=== PATIENT | male | born 1955 | race Caucasian/White ===

== ENCOUNTER 2020-07-08 00:57 | Observation (INO) | payer MEDICARE, SELFPAY ==
[2020-07-08] VITALS (26 sets, daily range): BP systolic 100–152; BP diastolic 56–92; PULSE 20–93; RESP 11–62; TEMP 35.6–36.6; O2SAT 91–100; BMI 35.9
--- NOTE | ~2020-07-08 | XR_ITS ---
EXAMINATION: XR chest 2V 07/08/2020 01:39 INDICATION: Chest pain PROCEDURE: 2 view chest COMPARISON: No prior studies for comparison. FINDINGS: The lungs are clear. The cardiomediastinal silhouette is within normal limits. There are no pleural effusions. There is no pneumothorax suspected. IMPRESSION: 1: NO ACUTE CARDIOPULMONARY DISEASE. Reviewed, dictated and finalized at location A.
--- NOTE | 2020-07-08 01:01 | ED.CHESTPAIN ---
HPI - Chest Pain General Chief Complaint: Chest Pain Stated Complaint: cp Time Seen by Provider: 07/08/20 01:00 History of Present Illness HPI narrative: Pain in the bilateral shoulders and arms for the past few days. The pain is dull. Feels similar to anginal pain he has had in the past although it is usually only on the left. Initially relieved with nitro glycerine today it did not help. No Chest pain, SOB, nausea. Related Data Home Medications Medication Instructions Recorded Confirmed metoprolol tartrate 12.5 mg PO BID 07/08/20 07/08/20 pravastatin 40 mg PO HS 07/08/20 07/08/20 trazodone 150 mg PO .qhs 07/08/20 07/08/20 Allergies Allergy/AdvReac Type Severity Reaction Status Date / Time folic acid Allergy Mild Hives Verified 07/08/20 01:18 Review of Systems Review of Systems: All systems reviewed & are unremarkable except as noted in HPI and below Constitutional: Constitutional: Denies fever(s) Cardiovascular: Cardiovascular: Reports chest pain Respiratory: Respiratory: Denies cough and Denies dyspnea Gastrointestinal: Gastrointestinal: Denies abdominal pain and Denies nausea Musculoskeletal: Musculoskeletal: Denies back pain Neurologic: Denies numbness and Denies weakness PMFSH Past Medical History Medical History Anxiety Cataract, left eye Chronic anxiety Chronic depression Colon cancer screening Coronary artery disease Depression GERD (gastroesophageal reflux disease) Heart disease History of myocardial infarction Hypersomnia, idiopathic Hypothyroidism (acquired) Loud snoring Mixed hyperlipidemia Obesity (BMI 35.0-39.9 without comorbidity) Presence of stent in coronary artery in patient with coronary artery disease Prostate cancer screening Sleeping difficulty Surgical History Surgical History H/O heart artery stent (~2002) 2 in 2002,one in 2010, one in 2013 Family History Family History Mother Acute myocardial infarction Heart disease Father Acute myocardial infarction Heart disease Sibling Acute myocardial infarction Heart disease FH: CABG (coronary artery bypass surgery) Social History Social History Smoking packs per day: 2 Smoking cigarettes per day: 40.0 Years smoked: 40 Smoking pack-years: 80.00 Smoking status: Current every day smoker Alcohol intake: never Substance use: never Substance use type: does not use Gender identity (if verbalized by the patient): Male Spiritual care concerns: No Exam Const: General: no acute distress and alert Nutritional Appearance: obese Orientation/consciousness: patient oriented x3 HENMT: Head: normal to inspection Neck: Neck: normal visual inspection Chest: Chest palpation & inspection: normal inspection of the chest and no tenderness Resp: Effort & Inspection: normal respiratory effort Auscultation: clear to auscultation bilaterally Cardio: Rate: regular rate Rhythm: regular rhythm Skin: General skin exam: normal color Neuro: General: patient oriented x3, moves all extremities, no focal motor deficits and CN's II-XI intact bilaterally Speech: normal speech Extrem: General: normal to inspection and no edema Course Vital Signs Vital signs: Vital Signs Temperature 36.5 C 07/08/20 00:59 Pulse Rate 58 L 07/08/20 00:59 Respiratory Rate 18 07/08/20 00:59 Blood Pressure 152/77 H 07/08/20 00:59 Pulse Oximetry 91 07/08/20 00:59 Temperature 36.1 C L 07/08/20 15:51 Pulse Rate 75 07/08/20 16:00 Respiratory Rate 20 07/08/20 15:51 Blood Pressure 120/67 07/08/20 15:51 Pulse Oximetry 94 07/08/20 15:51 MDM - Chest Pain MDM Narrative Medical decision making narrative: Pain is not typical, but it is concerning that he r
--- NOTE | 2020-07-08 01:16 | ECG_ITS ---
Measurements Intervals [place] Rate: 52 P: 54 NC: 183 QRS: 1 QRSD: 94 T: 92 QT: 411 QTc: 385 Interpretive Statements SINUS BRADYCARDIA BORDERLINE ST-T WAVE ABNORMALITY- HIGH LATERAL LEADS BASELINE WANDER- I, II, AVR, AVL, AVF BORDERLINE ECG Electronically Signed On 07-08-2020 7:04:30 CDT by Travon العراقي D.O.
[2020-07-08 01:28] LABS: Basophils Absolute Auto 0.1 K/mm3 (0.0-0.1); Basophils Percent Auto 0.9 % (0.2-1.2); Eosinophils Absolute Auto 0.3 K/mm3 (0-0.3); Eosinophils Percent Auto 3.9 % (0-4.4); Hematocrit 42.8 % (42.0-52.0); Hemoglobin 14.2 g/dL (14.0-18.0); Immature Granulocyte Absolute 0.02 K/mm3 (0.00-0.031); Immature Granulocyte Percent A 0.3 % (0-0.5); Lymphocytes Absolute Auto 2.41 K/mm3 (0.9-3.2); Lymphocytes Percent Auto 31.1 % (18.3-44.2); Mean Corpuscular HGB Conc 33.2 g/dl (32-36); Mean Corpuscular Hemoglobin 31.1 pg (26-34); Mean Corpuscular Volume 93.7 fl (80-100); Mean Platelet Volume 10.5 fl (7.4-10.4); Monocytes Absolute Auto 0.7 K/mm3 (0.1-0.6); Monocytes Percent Auto 9.3 % (2.6-8.5); Neutrophils Absolute Auto 4.2 K/mm3 (1.3-6.7); Neutrophils Percent Auto 54.5 % (45.5-73.1); Platelet Count Result 150 k/mm3 (150-375); Red Blood Count 4.57 M/mm3 (4.6-6.20); White Blood Count 7.7 K/mm3 (4.5-10.0)
[2020-07-08 01:37] LABS: Prothrombin Time 12.8 Seconds (11.1-14.7)
[2020-07-08 01:38] LABS: Partial Thromboplastin Time 26.2 SECONDS (22.3-36.8)
[2020-07-08 01:42] LABS: Anion Gap 6 mmol/L (8-16); Blood Urea Nitrogen 19 mg/dL (9-20); Calcium 8.9 mg/dL (8.4-10.2); Carbon Dioxide 26 mmol/L (22-30); Chloride 108 mmol/L (98-107); Estimated Glomerular Filt Rate 34; Glucose 123 mg/dL (75-110); Potassium 4.1 mmol/L (3.4-5.0); Sodium 140 mmol/L (137-145)
[2020-07-08 01:54] LABS: Troponin I 0.014 ng/mL (0.000-0.034)
[2020-07-08] MEDS: NITROGLYCERIN OINTMENT 1 INCH DOSE 0.5 INCH TRANSDERM (05:04)
--- NOTE | 2020-07-08 05:42 | ADMGEN ---
This patient, Sharad Joel, was admitted to IMU Room 210-01 at 0543. Patient/family oriented to hospital policies and general routines including ID bracelet, bed and alarms, visiting hours, pain management, procedures, bathroom and other care routines, personal items, smoking policy, room service/diet, and visiting hours. Valuables list has been completed. Information on how to activate the Rapid Response Team has been discussed. Patient/Family are encouraged to report perceived risks to care and to ask questions if they do not understand what they are told or what they should do.
[2020-07-08 07:41] LABS: Troponin I 0.113 ng/mL (0.000-0.034)
--- NOTE | 2020-07-08 08:22 | PC.NURSE ---
Critical Troponin received at 0741, Karma Vega called at 0805 with no answer. Informed that Karma would be in later today, Dr. Tenorio Called at 0820 with no answer
--- NOTE | 2020-07-08 10:22 | PM.CNCAR ---
Assessment and Plan Assessment and plan (1) Non-STEMI (non-ST elevated myocardial infarction): Code(s): I21.4 - Non-ST elevation (NSTEMI) myocardial infarction Status: Acute Assessment and Plan: This is a patient who presents with chest pain and has a history of 4 coronary stents. Symptoms consistent with previous angina. Discussed risks and benefits of cardiac catheterization he agrees to proceed. He understands risks of dialysis given his elevated creatinine . Will continue Plavix for now.. Define coronary anatomy. (2) CKD (chronic kidney disease): Code(s): N18.9 - Chronic kidney disease, unspecified Status: Acute Assessment and Plan: Creatinine 2. No previous labs History of Present Illness History of Present Illness Consult date/time: Date of service.: 07/08/20 10:22 Requesting physician: Chris Swenson MD Consult reason: chest pain Reason For Visit: Chest pain, elevated troponin Narrative: 64-year-old patient with past history of 4 coronary stents last 1 was 2013 in [place], [facility] who comes to the hospital with central chest pain radiating to both arms similar to previous angina associated with some shortness of breath but denies lower limb edema, nausea, vomiting, fever, chills, cough, palpitations. He takes Plavix chronically. Has not seen a senior hardware design engineer since 2013. He has been living here with his daughter for the last 1 year. Serum creatinine 2, troponin peaked at 0.11, EKG interpreted myself shows sinus rhythm with Q-waves in leads 3 and AVF, chest x-ray reviewed myself looks unremarkable. Review of Systems Constitutional: Constitutional: Denies chills, Denies fever(s) and Denies poor appetite Eyes: Eyes: Denies eye discharge, Denies loss of vision, Denies eye pain and Denies photophobia ENT: Denies dizziness, Denies epistaxis, Denies nasal congestion and Denies sore throat Cardiovascular: Cardiovascular: Reports chest pain, Denies syncope, Denies pedal edema, Denies leg edema, Denies palpitations, Reports dyspnea, Reports dyspnea on exertion and Denies orthopnea Respiratory: Respiratory: Denies cough, Reports dyspnea, Reports dyspnea on exertion and Denies wheezing Gastrointestinal: Gastrointestinal: Denies abdominal pain, Denies diarrhea, Denies nausea and Denies vomiting Genitourinary: Genitourinary: Denies hematuria, Denies genital lesions and Denies dysuria Musculoskeletal: Musculoskeletal: Denies arthralgias, Denies joint swelling and Denies numbness Integumentary/Breasts: Skin/Breast: Denies pruritus and Denies rash Neurologic: Denies dizziness, Denies syncope, Denies loss of vision and Denies numbness Psychiatric: Psychiatric: Denies anxiety and Denies depression Endocrine: Endocrine: Denies cold intolerance, Denies heat intolerance and Denies palpitations Hematologic/Lymphatic: Hematologic/Lymphatic: Denies easy bleeding and Denies easy bruising Allergic/Immunologic: Allergic/Immunologic: Denies urticaria and Denies wheezing [facility] Past Medical History Medical History Anxiety Cataract, left eye Chronic anxiety Chronic depression Colon cancer screening Coronary artery disease Depression GERD (gastroesophageal reflux disease) Heart disease History of myocardial infarction Hypersomnia, idiopathic Hypothyroidism (acquired) Loud snoring Mixed hyperlipidemia Obesity (BMI 35.0-39.9 without comorbidity) Presence of stent in coronary artery in patient with coronary artery disease Prostate cancer screening Sleeping difficulty Surgical History Surgical History H/O heart artery stent (~2002) 2 in 2002,one in 2010, one in 2013 Family History Family History Mother Acute myocardial infarction Heart disease Father Acute myocardial infarction Heart disease Sibling
--- NOTE | 2020-07-08 10:40 | WPDHPUPDATE1 ---
History and Physical Update Update Date/Time: 07/08/20 10:40 History and Physical has been reviewed, including an updated exam of the patient. There are NO changes in the patient's condition. Risks, benefits, and alternatives have been discussed and questions answered. Patient agrees to proceed with procedure.
--- NOTE | 2020-07-08 10:40 | WPDMODSED ---
Moderate Sedation Note-Pt Data Patient Data Allergies Allergy/AdvReac Type Severity Reaction Status Date / Time folic acid Allergy Mild Hives Verified 07/08/20 01:18 Home Medications Medication Instructions Recorded Confirmed Type bupropion HCl 150 mg 24 hr tablet, 150 mg PO DAILY #90 tablet 01/02/20 07/08/20 Rx extended release bupropion HCl 300 mg 24 hr tablet, 300 mg PO DAILY #90 tablet 01/02/20 07/08/20 Rx extended release citalopram 40 mg tablet 20 mg PO DAILY #90 tablet 01/02/20 07/08/20 Rx clopidogrel 75 mg tablet 75 mg PO DAILY #90 tablet 01/02/20 07/08/20 Rx isosorbide mononitrate 30 mg 30 mg PO DAILY #90 tablet 01/02/20 07/08/20 Rx tablet,extended release 24 hr levothyroxine 25 mcg tablet 25 mcg PO DAILY #90 tablet 01/02/20 07/08/20 Rx nitroglycerin 0.4 mg sublingual 0.4 mg SUBLINGUAL Q5M PRN #30 01/02/20 07/08/20 Rx tablet tablet pantoprazole 40 mg tablet,delayed 40 mg PO QAM #90 tablet 01/02/20 07/08/20 Rx release metoprolol tartrate 25 mg PO BID 07/08/20 History pravastatin 40 mg PO HS 07/08/20 07/08/20 History trazodone 150 mg PO .qhs 07/08/20 07/08/20 History Sedation/Anesthesia: No previous sedation/anesthesia problems (including family history). [facility] Past Medical History Medical History Anxiety Cataract, left eye Chronic anxiety Chronic depression Colon cancer screening Coronary artery disease Depression GERD (gastroesophageal reflux disease) Heart disease History of myocardial infarction Hypersomnia, idiopathic Hypothyroidism (acquired) Loud snoring Mixed hyperlipidemia Obesity (BMI 35.0-39.9 without comorbidity) Presence of stent in coronary artery in patient with coronary artery disease Prostate cancer screening Sleeping difficulty Surgical History Surgical History H/O heart artery stent (~2002) 2 in 2002,one in 2010, one in 2013 Family History Family History Mother Acute myocardial infarction Heart disease Father Acute myocardial infarction Heart disease Sibling Acute myocardial infarction Heart disease FH: CABG (coronary artery bypass surgery) Social History Social History Smoking packs per day: 2 Smoking cigarettes per day: 40.0 Years smoked: 40 Smoking pack-years: 80.00 Smoking status: Current every day smoker Alcohol intake: never Substance use: never Substance use type: does not use Gender identity (if verbalized by the patient): Male Spiritual care concerns: No Mod Sed Physical Exam Physical Exam Pre Procedural Exam: Normal: Appearance, Eyes, Ears, Nose, Neck, Throat, Airway, Lungs, Heart Size, Heart Rate, Heart Rhythm, Neuro Exam, Abdomen, Liver, Kidneys, Spleen, Breasts, Genitalia, Extremities and Skin Hours since solid foods: 8 Hours since liquid intake: 8 Internal Medicine - PN: Obj Da Vital Signs Vital Signs: Vital Signs - 24 hr 07/08/20 00:59 07/08/20 02:00 07/08/20 04:04 Temperature 36.5 C Pulse Rate 58 L 60 58 L Respiratory Rate 18 12 12 Blood Pressure 152/77 H 150/92 H 145/79 H Pulse Oximetry 91 97 92 07/08/20 05:34 07/08/20 05:58 07/08/20 06:00 Temperature 35.6 C L Pulse Rate 56 L 62 62 Respiratory Rate 14 18 Blood Pressure 127/56 L 143/69 H Pulse Oximetry 96 94 07/08/20 08:00 07/08/20 08:16 07/08/20 10:00 Temperature 36.6 C Pulse Rate 65 20 L 65 Respiratory Rate 62 H Blood Pressure 100/68 Pulse Oximetry 94 Meds/Results Radiology Results: ITS Impressions Chest X-Ray 07/08/20 08:51 IMPRESSION: 1: NO ACUTE CARDIOPULMONARY DISEASE. Labs CBC & Chem 7: 07/08/20 01:21 07/08/20 01:21 Labs: Laboratory Results - last 24 hr 07/08/20 07/08/20 07/08/20 01:21 01:21 01:21 WBC 7.7
--- NOTE | 2020-07-08 10:40 | WPDCARDPROC ---
Cardiac Cath Procedure Note Date of procedure:: 07/08/20 Performing physician:: Saleem Ordonez MD Date of service July 08, 2020 Indication:: Elevated troponins Brief clinical history:: 64-year-old patient past medical history of 4 stents, hypertension hyperlipidemia who presents to the hospital with chest pain and troponin was elevated at 0.1. EKG shows inferior Q-waves. Procedure Procedure performed:: 1-Moderate sedation that started at 11:08 a.m. and ended at 11:52 a.m. the total duration 44 minutes using 3 of Versed and 75mcg fentanyl. The registered nurse was Debbie Guillory. 2-Selective left and right coronary angiogram. 3-Left heart catheterization with measurement of LVEDP and measurement of gradient across aortic valve. 4-Right common femoral arterial angiogram. Sedation/Medication given:: Moderate sedation. Access site:: Right common femoral artery. Estimated blood loss:: 10cc Procedure note:: After informed consent patient was brought in to medical laboratory technical officer with the was draped and prepped in usual manner. Moderate sedation was given and the right groin was infiltrated using 1% lidocaine. Five [place] sheath was obtained using micropuncture needle and the modified Seldinger technique. Selective left coronary angiogram was done using JL4 catheter with the tip of the catheter placed in the left main coronary artery. Selective right coronary angiogram was done using JR4 catheter with the tip of the catheter placed to the right coronary artery. After that 5 [place] pigtail catheter was advanced across the aortic valve into the left ventricle with measurement of LVEDP and measurement of gradient across aortic valve. Right common femoral arterial angiogram was done. Findings:: 1- left coronary artery is a large artery that divides into large LAD, large circumflex artery. Left main ostium 30%. 2- left anterior descending artery is a large artery that runs and wraps around the apex. has patent stent in the mid segment. has minimal irregularities in the rest of the vessel. 3- leftcircumflex artery is a large artery and shortly after that takes off from the left main there is a bifurcation that has 90% stenosis. OM1 is large and has a patent stent proximally and then it divides into 2 large branches with minimal irregularities. Distal to the bifurcation the left circumflex artery has a stent that is patent and it is at the junction of the mid to distal segment. 4- right coronary artery is Large artery and dominant and has a stent in the mid segment. In the proximal edge of the stent there is 99% stenosis which is InStent restenosis. 5- LVEDP was 10 mm Hg and no gradient across aortic valve. 6- opening arterial pressure was 126/70 and closing pressure was 125/66 7- right femoral artery angiogram shows no significant disease in the right common femoral artery. Conclusion:: high-grade stenosis at the bifurcation and the proximal left circumflex artery. high-grade stenosis InStent restenosis of proximal RCA stent. patent stent in mid LAD. Assessment and Plan Additional Plan - will transfer this patient to [facility] for consideration for CABG. - workup for CKD.
[2020-07-08] MEDS: SODIUM CHLORIDE 0.9% IV 1,000 ML 125 ML IV CONT (13:00)
--- NOTE | 2020-07-08 13:38 | PM.TDS ---
Transfer Discharge Sum: Prov Provider Date of admission: 07/08/20 04:58 Primary care physician: Kevin Davidson MD Admitting clinician: Dr. Saleem Ordonez DS: Admitting Diagnosis Admitting Diagnosis Admitting Diagnosis: Chest pain, elevated troponin DS: Discharge Diagnosis Discharge Diagnosis (1) Non-STEMI (non-ST elevated myocardial infarction): Code(s): I21.4 - Non-ST elevation (NSTEMI) myocardial infarction Status: Acute Assessment and Plan: See hospital course (2) CKD (chronic kidney disease): Code(s): N18.9 - Chronic kidney disease, unspecified Status: Acute Assessment and Plan: Creatinine 2.0. Fluids given during the procedure. (3) Coronary artery disease: Qualifiers: Associated angina: without angina Coronary Disease-Associated Artery/Lesion type: [place] artery [place] vs. transplanted heart: [place] heart Qualified Code(s): I25.10 - Atherosclerotic heart disease of [place] coronary artery without angina pectoris Code(s): I25.10 - Atherosclerotic heart disease of [place] coronary artery without angina pectoris Status: Acute Assessment and Plan: History of 4 stents. Cardiac catheterization findings below. Transfer Discharge Sum: Med Medications Active and Home Medications: Home Medications bupropion HCl 150 mg 24 hr tablet, extended release 150 mg PO DAILY #90 tablet 01/02/20 [Rx Confirmed 07/08/20] bupropion HCl 300 mg 24 hr tablet, extended release 300 mg PO DAILY #90 tablet 01/02/20 [Rx Confirmed 07/08/20] citalopram 40 mg tablet 20 mg PO DAILY #90 tablet 01/02/20 [Rx Confirmed 07/08/20] clopidogrel 75 mg tablet 75 mg PO DAILY #90 tablet 01/02/20 [Rx Confirmed 07/08/20] isosorbide mononitrate 30 mg tablet,extended release 24 hr 30 mg PO DAILY #90 tablet 01/02/20 [Rx Confirmed 07/08/20] levothyroxine 25 mcg tablet 25 mcg PO DAILY #90 tablet 01/02/20 [Rx Confirmed 07/08/20] nitroglycerin 0.4 mg sublingual tablet 0.4 mg SUBLINGUAL Q5M PRN #30 tablet 01/02/20 [Rx Confirmed 07/08/20] pantoprazole 40 mg tablet,delayed release 40 mg PO QAM #90 tablet 01/02/20 [Rx Confirmed 07/08/20] metoprolol tartrate 25 mg PO BID 07/08/20 [History] pravastatin 40 mg PO HS 07/08/20 [History Confirmed 07/08/20] trazodone 150 mg PO .qhs 07/08/20 [History Confirmed 07/08/20] Active Medications Al Hydrox/Mg Hydrox/Simethicone (Mylanta) 30 ml PO Q4H PRN PRN Reason: Indigestion Aspirin (Aspirin Ec) 81 mg BY MOUTH DAILY CHELSEY Stop: 08/08/20 09:01 Sodium Chloride (Normal Saline Iv) 1,000 mls @ 125 mls/hr IV CONT .Q8H ONE Stop: 07/08/20 21:09 Isosorbide Mononitrate (Imdur) 30 mg PO DAILY CHELSEY Levothyroxine Sodium (Synthroid) 25 mcg PO DAILY@0630 [facility] Metoprolol Tartrate (Lopressor) 25 mg PO Q12HR [facility] Nitroglycerin (Nitrostat Subl 0.4 Mg (1/150)) 0.4 mg SUBLINGUAL Q5M PRN PRN Reason: chest pain Pantoprazole Sodium (Protonix) 40 mg PO QAM [facility] Pravastatin Sodium (Pravastatin Sodium) 40 mg PO HS [facility] Trazodone HCl (Desyrel) 150 mg PO HS [facility] Transfer Discharge Sum: Hosp Hospital Course Hospital course: Sharad Joel is a 64 year old male with a past history of 4 coronary stents, last one was 2013 in [place], hypertension who presented to the hospital with central chest pain radiating to both arms similar to previous angina associated with some shortness of breath but denies lower limb edema, nausea, vomiting, fever, chills, cough, palpitations. He takes Plavix chronically. Has not seen a cash controller since 2013. He has been living here with his daughter for the last 1 year. EKG showed sinus rhythm with Q-waves in leads 3 and AVF. Troponin elevated to 0.113. He was taken to the cardiac catheterization lab by understanding the risk for kidney injury with a creatinine of 2.0. Findings are:1- left coronary artery is a large artery that divides into large LAD, large circumflex a
[2020-07-08] MEDS: PANTOPRAZOLE 40 MG TABLET PO (15:01)
[2020-07-08] MEDS: ISOSORBIDE MONONITRATE 30 MG TAB.ER.24H PO (15:01)
[2020-07-08] MEDS: CITALOPRAM HYDROBROMIDE 20 MG TABLET PO (15:49)
[2020-07-08] MEDS: buPROPion HCL XL (24 HR) 150 MG TABCR 300 MG PO (15:49)
[2020-07-08] MEDS: buPROPion HCL XL (24 HR) 150 MG TABCR PO (15:49)
--- NOTE | 2020-07-08 16:38 | PC.NURSE ---
Patient transferred to [facility]. Report called to Gemma MCMANUS and given to paramedics with [facility]. Patient transferred in stable condition.
== END 2020-07-08 16:30 | disposition short-term general hospital (02) ==
LOC: ANHED 02:00 → ANHIMU 05:12
PROVIDERS: Internal Medicine Cardiovascular Disease; Admitting Provider Internal Medicine Cardiovascular Disease; Emergency Provider Emergency Medicine; PCP Family Medicine; Visit Provider Internal Medicine Cardiovascular Disease
PROC: 4A023N7 Measurement of Cardiac Sampling and Pressure, Left Heart, Percutaneous Approach (ICD-10-PCS; CPT 93452; principal; 2020-07-08 10:45)
DX: I21.4 Non-ST elevation (NSTEMI) myocardial infarction (principal); I12.9 Hypertensive chronic kidney disease with stage 1 through stage 4 chronic kidney disease, or unspecified chronic kidney disease; N18.9 Chronic kidney disease, unspecified; E66.9 Obesity, unspecified; F17.210 Nicotine dependence, cigarettes, uncomplicated; I25.10 Atherosclerotic heart disease of native coronary artery without angina pectoris; I25.2 Old myocardial infarction; Z79.02 Long term (current) use of antithrombotics/antiplatelets; Z95.5 Presence of coronary angioplasty implant and graft; Z68.35 Body mass index [BMI] 35.0-35.9, adult
CPT/HCPCS: 36415; 71046; 80048; 84484; 85025; 85610; 85730; 93005; 93458; 99285; A9270; C1887; C1894; G0378; J0461; J0583; J1644; J2250; J3010; J7030; J7040